=== PATIENT | male | born 1955 | race Caucasian/White ===

== ENCOUNTER 2017-10-22 07:30 | Inpatient (IN) ==
[2017-12-03 05:50] VITALS: BMI 41.8
[2017-12-03] MEDS ORDERED: TRANEXAMIC ACID 1,000 MG in NS 100 ML IV ONE ×2 (06:00→07:00)
[2017-12-03] MEDS ORDERED: DEXAMETHASONE 4 MG/ML INJECTION IVP ONE (06:00)
[2017-12-03] MEDS ORDERED: LIDOCAINE 1% (10mg/ml) 2mL INJ PF SDV ID ONE (06:00)
[2017-12-03] MEDS ORDERED: ACETAMINOPHEN 500 MG TABLET PO ONE (06:00)
[2017-12-03] MEDS ORDERED: FAMOTIDINE PB 20 MG/50 ML BAG IV ONE (06:00)
[2017-12-03] MEDS ORDERED: METOCLOPRAMIDE 10mg/2ml INJECTION IVP ONE (06:00)
[2017-12-03] MEDS ORDERED: ONDANSETRON 4 MG/2 ML INJECTION IVP ONE (06:00)
[2017-12-03] MEDS ORDERED: VANCOMYCIN 1,000 MG INJECTION ONE (06:35)
[2017-12-03] MEDS ORDERED: CEFAZOLIN 1 G INJECTION IVP ONE (06:47)
[2017-12-03] MEDS ORDERED: VANCOMYCIN 1,000 MG INJECTION IAR ONE (06:47)
[2017-12-03] MEDS: NOZIN NASAL SWAB NAS SCH ×6 (06:47→21:15)
[2017-12-03] MEDS ORDERED: FentaNYL 250 MCG/5 ML INJECTION ONE (07:01)
[2017-12-03] MEDS ORDERED: MIDAZOLAM 2mg/2ml INJECTION ONE (07:01)
[2017-12-03] MEDS ORDERED: PROPOFOL 500 MG/50 ML VIAL ONE (07:02)
[2017-12-03] MEDS ORDERED: TRANEXAMIC ACID 1,000 MG/10 ML VIAL TOP ONE (07:05)
[2017-12-03] MEDS ORDERED: SUCCINYLCHOLINE 20mg/mL 10mL INJECTION ONE (07:05)
[2017-12-03] MEDS ORDERED: NOZIN NASAL SWAB NAS ONE ×2 (07:21→09:49)
[2017-12-03] MEDS ORDERED: ONDANSETRON 4 MG/2 ML INJECTION IVP PRN ×2 (07:21→09:49)
[2017-12-03] MEDS ORDERED: DiphenhydrAMINE 25 MG CAPSULE PO PRN ×2 (07:21→09:49)
[2017-12-03] MEDS ORDERED: WARFARIN - PHARMACY CONSULT MC ONE (07:21)
[2017-12-03] MEDS ORDERED: DiphenhydrAMINE 50 MG/ML INJECTION IVP PRN ×2 (07:21→09:49)
[2017-12-03] MEDS ORDERED: LORazepam 1 MG TABLET PO PRN ×2 (07:21→09:49)
[2017-12-03] MEDS ORDERED: EPHEDRINE 50mg/ml INJECTION ONE (07:22)
[2017-12-03] MEDS ORDERED: LR 1,000 ML IV SCH (07:45)
[2017-12-03] MEDS ORDERED: EPINEPHrine PF 0.25 MG, BUPIVACAINE 0.25% PF 30 ML, KETOROLAC INJ 60 MG in NS 30 ML OPSITE ONE (08:00)
--- NOTE | 2017-12-03 08:10 | Anesthesia Preoperative Report ---
Anesthesia Preoperative Record - Date and Time Date: 12/03/17 Preoperative Diagnosis: Lt TKA M17.12 Proposed Procedure: left robot TKA NPO Since Date: 12/02/17 NPO Since Time: 23:00 Allergies/Adverse Reactions: Allergies Allergy/AdvReac Type Severity Reaction Status Date / Time meloxicam Allergy Mild COUGH Verified 12/03/17 06:14 ether Allergy Unknown NAUSEA & Verified 12/03/17 06:14 VOMITING - Vital Signs Vital Signs: Temperature 98.5 F 12/03/17 05:49 Pulse Rate 58 L 12/03/17 06:19 Respiratory Rate 15 12/03/17 05:49 Blood Pressure 128/75 12/03/17 05:49 Pulse Oximetry 94 12/03/17 05:49 Height and Weight: Height 5 ft 11 in Weight 136.1 kg Body Mass Index 41.8 - Medications Inpatient Medications: Current Medications Acetaminophen (Tylenol) 650 mg PO QID [facility] Aspirin (Ecotrin) 81 mg PO BID [facility] Bisacodyl (Dulcolax) 10 mg RECTALLY DAILY [facility] Stop: 12/05/17 20:01 Diphenhydramine HCl (Benadryl) 25 mg PO Q6H PRN PRN Reason: Itching Diphenhydramine HCl (Benadryl) 25 mg IVP Q6HR PRN PRN Reason: Itching Docusate Sodium (Colace) 100 mg PO BID [facility] Enoxaparin Sodium (Lovenox) 40 mg SQ Q24H [facility] Sodium Chloride (Normal Saline) 1,000 mls @ 50 mls/hr IV .Q20H [facility] Last Infusion: 12/03/17 07:49 Dose: 0 mls/hr Sodium Chloride (Normal Saline) 1,000 mls @ 80 mls/hr IV .[id number] [facility] Lactated Ringer's (Lactated Ringers) 1,000 mls @ 75 mls/hr IV .[id number] [facility] Last Admin: 12/03/17 07:49 Dose: 75 mls/hr Isopropyl Alcohol (Nozin Nasal Swab) 1 each NILAY Q1M [facility] Stop: 12/03/17 12:33 Last Admin: 12/03/17 06:54 Dose: 1 each Isopropyl Alcohol (Nozin Nasal Swab) 1 each NILAY 0600,1400,2200 [facility] Isopropyl Alcohol (Nozin Nasal Swab) 1 each NILAY POSTOP ONE Stop: 12/03/17 07:22 Lorazepam (Ativan) 1 mg PO HS PRN PRN Reason: Sleep Magnesium Hydroxide (Mom) 30 ml PO DAILY [facility] Stop: 12/05/17 08:01 Naproxen (Aleve (Naproxen) 220 Mg) 440 mg PO BID [facility] Ondansetron HCl (Zofran) 4 mg IVP Q4H PRN PRN Reason: Nausea &/or vomiting Polyethylene Glycol (Miralax) 17 gm PO DAILY [facility] Senna (Senna Lax) 17.2 mg PO HS [facility] Senna (Senna Lax) 17.2 mg PO DAILY PRN PRN Reason: Constipation Sodium Chloride (Iv Flush) 10 - 80 ml IV PRN PRN PRN Reason: Flushing Warfarin Sodium (Pharmacy Consult - Warfarin) 1 each [facility] O ONE Stop: 12/03/17 07:22 Warfarin Sodium (Coumadin Protocol) 0 [facility] NOTE [facility] Home Medications: Home Medications Medication Instructions Recorded Confirmed Type Aspirin [Aspirin] 81 mg PO DAILY 11/25/17 12/03/17 History Atorvastatin [Lipitor] 20 tab PO HS 11/25/17 12/03/17 History Cholecalciferol (Vitamin D3) 1 cap PO DAILY 11/25/17 12/03/17 History [Vitamin D3] Loratadine 10 mg PO DAILY PRN 11/25/17 12/03/17 History Metoprolol Tartrate [Lopressor] 25 mg PO BIDWM 11/25/17 12/03/17 History ergocalciferol (vitamin D2) 50,000 50,000 unit PO DAILY #2 cap 11/25/17 Rx unit capsule Is Patient on Beta Deana?: Yes - Medical History Respiratory: Reports: Pulmonary Embolism (2015- anticoagulation therapy for 6 months, no longer on it. ), Sleep Apnea, Other ("throat collapses when he lays on his back") Cardiovascular: Reports: Hypertension, High Cholesterol, Myocardial Infarction ( hx of - pt does not know when - over 3 years ago) Gastrointestional: Reports: Gastroesophageal Reflux Disease (history. denies currently), Hiatal Hernia (hx of), Ulcer Neuro/Musculoskeletal: Reports: HX.MS.OSAR, Back Problems Other History: Reports: Anesthesia Reactions (hx of difficult intubation-2005) - Surgical History HEENT Surgeries: Reports: Tonsillectomy Cardiac Surgeries/Treatments: Reports: Cardiac Catheterization (pt reports this was all clear. 2016) Respiratory Surgery/Treatments: Reports: CPAP Use GI Surgery/Treatments: Reports: Colonoscopy (adenomatous polyps) Surgery/Treatment: REPORT: Other (lower abd mass removed - benign) Musculoskeletal Surgery/Tx: Reports: Shoulder Arthroscopy (Lt shoulder repair; biceps tendon repaired), Total Hip Replacement (Lt THR; Rt THR) Reproductive Surgery/Treatment: Reports: Vasectomy Anesthesia Reactions: None Hx Family Anesthesia Reaction: No History of Motion Sickness: No - Social History Smoking Status: Former smoker Hx Chewing Tobacco Use: No Second Hand Exposure: No Substance Use Type: does not use Alcohol Intake: current Alcohol Intake Frequency: holidays/special occasions only - Pertinent Findings Laboratory: CBC and BMP 12/03/17 05:59 12/03/17 05:59 BMP 12/03/17 05:59 Sodium 144 Potassium 3.9 Chloride 105 Carbon Dioxide 27 BUN 23.0 H Creatinine 0.7 L Glucose 144 H Calcium 9.5 Liver Function 12/03/17 Range/Units 05:59 Total Bilirubin 0.50 (0.20-1.30) MG/DL AST 32 (17-59) U/L ALT 40 (1-50) U/L Alkaline Phosphatase 55 (38-126) U/L Albumin 4.7 (3.5-5.0) g/dL EKG: Sinus Bradycardia - Physical Exam Respiratory Exam: Present: lungs clear (slightly diminished), bilateral breath sounds equal Cardiovascular Exam: Present: regular rate and rhythm - Airway Assessment Mallampati Score: III TMD: 3 Fingerbreadths Neck Extension: good Overall Assessment: may be difficult mask vent (full perez), may be difficult intubation, other (history of difficult intubation. ) - ASA ASA Score: 3 - Plan Anesthesia: General Inhalation Gases - Discussion Discussion: Discussed risks/options/alternatives of anesthesia and questions answered. Patient consents. Nursing pain assessment noted. Present for Discussion: spouse Attestation Statement: Prior to the delivery of any anesthetic medication, I examined the patient, developed the plan, obtained the patient's consent and discussed the risk and benefits of the procedure with the patient/guardian. - Additional Information Seen by Anesthesia: Yes
--- NOTE | 2017-12-03 08:44 | Operative Note ---
- Procedure Preoperative Diagnosis: Left knee primary degenerative joint disease Postoperative Diagnosis: Same as preoperative diagnosis. Surgeon: René Meza MD Maintainer Plant: Jaun Simeon Complications: None. Anesthesia: Spinal. Estimated Blood Loss: See Anesthesia Record. Fluids: Please see Anesthesia Record. Desciption of Procedure: Mr. Lopez and his left knee were identified and marked in the preoperative holding area. He was brought back to the operating suite. Spinal anesthetic was administered and he was placed supine on the operating table. The left lower extremity was prepped and draped in my normal sterile fashion. Timeout was performed. The Progression robotic arm was used during the surgery. He had a correctable varus deformity with hyperextension of 5. A standard anterior midline incision followed by medial parapatellar arthrotomy was performed. Anterior fat pad and meniscus were removed. The patella was everted and a patellar osteotomy was performed leaving 14 mm of bone. A complete loss of cartilage in the medial compartment and large Helder articular osteophytes medially and around the patella. Tibial and femoral arrays and checkpoints were placed both within the original incision. The bone was then registered with the Progression robot. Osteophytes were removed and gaps were captured both 90 and 0 with correction. Given his hyperextension I balanced him with a 2 mm gaps in flexion and 16 mm gaps in extension. The Progression robotic arm was then used to assist with the bone cuts. Posterior osteophytes and remaining meniscus were removed. Trial components were placed. We used a 6 femur and a 5 tibia with a 9 mm spacer and a 32 patella. Motion was good but he was tight laterally in extension so after release of his IT band he was well balanced. A partial release of his PCL was also performed. He tracked well and was well balanced throughout range of motion. The tibia was stamped at the proper rotation. Trial components fit well and bone quality was adequate so we proceeded with press-fit components. Components were press-fit into place. A final spacer was also placed.The knee was ranged one more time to ensure good stability, balance and patellar tracking. 1 g of vancomycin powder was then placed into the knee joint. The capsulotomy was then closed with #1 Vicryl. I then left my trust manager assistant to close the subcutaneous tissue with 2-0 Vicryl. Running 4-0 Monocryl will be used in the subcuticular layer. Dermabond will be used on the skin followed by sterile dressing. After drapes are removed patient will be taken to recovery room under the care of anesthesia.
--- NOTE | 2017-12-03 09:29 | Anesthesia Postoperative Note ---
- Date and Time Date: 12/03/17 Time: 09:29 - Status Patient Participated in Evaluation: Patient Participated in Person Vital Signs: Temperature 98.5 F 12/03/17 05:49 Pulse Rate 58 L 12/03/17 06:19 Respiratory Rate 15 12/03/17 05:49 Blood Pressure 128/75 12/03/17 05:49 Pulse Oximetry 94 12/03/17 05:49 Respiratory Function: Airway Patent Cardiovascular Function: Regular Pulse EKG: Sinus Rhythm Mental Status: Alert and Oriented Pain Intensity: 2 Hydration: IV Infusing Complications During Recover: None Apparent - Follow-Up Instructions Instructions: Per Surgeon
--- NOTE | 2017-12-03 09:29 | Anesthesia Procedure Note ---
Peripheral Nerve Blockade - Procedure Physician: Nav Meza MD Date: 12/03/17 Surgical Procedure: left TKA, robot Discussion: Discussed risks/options/alternatives of anesthesia and questions answered. Patient consents. Nursing pain assessment noted. Block Start: 09:19 Block Stop: 09:23 Blocked Employed: Adductor Canal Indication: Post-Operative Pain Approach: Left Side Confirmed Position: Supine Patient: Consent, Risks/Benefits Discussed, Informed, Post Block Act. Discussed IV Sedation: Yes Initial Vital Signs: Temperature 98.5 F 12/03/17 05:49 Temperature Source Oral 12/03/17 05:49 Pulse Rate 59 L 12/03/17 05:49 Respiratory Rate 15 12/03/17 05:49 Blood Pressure 128/75 12/03/17 05:49 Blood Pressure Mean 92 12/03/17 05:49 Blood Pressure Position Sitting 12/03/17 05:49 Pulse Oximetry 94 12/03/17 05:49 Oxygen Delivery Method 12/03/17 05:49 Post Vital Signs: Temperature 98.5 F 12/03/17 05:49 Pulse Rate 58 L 12/03/17 06:19 Respiratory Rate 15 12/03/17 05:49 Blood Pressure 128/75 12/03/17 05:49 Pulse Oximetry 94 12/03/17 05:49 Initial Pain Pain Score: 0 Post Block Pain Score: 0 Prep: Chlorhexadine/ETOH Ultrasound Used?: Yes - Injectate Ropivacaine (%): 0.5 Ropivacaine (mL): 30 Was Epi 1:200,000 Used?: No Injection: Injection made incrementally with constant monitoring and aspiration every ml
[2017-12-03] MEDS ORDERED: POLYETHYL GLYCOL 3350 17gm PACKET PO SCH (09:49)
[2017-12-03] MEDS ORDERED: DOCUSATE SODIUM 100 MG CAPSULE PO SCH (09:49)
[2017-12-03] MEDS ORDERED: NS 1,000 ML IV SCH ×2 (09:49→14:15)
[2017-12-03] MEDS ORDERED: ACETAMINOPHEN 325 MG TABLET PO SCH (09:49)
[2017-12-03] MEDS ORDERED: NAPROXEN 220 MG TABLET PO SCH (09:49)
[2017-12-03] MEDS ORDERED: LORATADINE 10 MG TABLET PO PRN (09:49)
--- NOTE | 2017-12-03 10:11 | XRay Report ---
Indication: postoperative image PROCEDURE: XR knee LT 2V: Encounter: Initial Comparison: August 12, 2017 Findings: Postoperative changes of left total knee replacement are seen. There is expected postoperative subcutaneous gas. No evidence of hardware failure or acute fracture. No retained radiopaque surgical instruments or sponges. Overlying material causing artifact. Impression: New left total knee prosthesis without evidence of immediate complication. .
[2017-12-03] MEDS: NS 1,000 ML IV SCH ×3 (10:13→23:20)
[2017-12-03] MEDS: ACETAMINOPHEN 325 MG TABLET PO SCH ×4 (10:14→20:07)
[2017-12-03] MEDS: NAPROXEN 220 MG TABLET PO SCH ×2 (10:15→20:06)
[2017-12-03] MEDS: POLYETHYL GLYCOL 3350 17gm PACKET PO SCH (10:15)
[2017-12-03] MEDS: DOCUSATE SODIUM 100 MG CAPSULE PO SCH ×2 (10:15→20:07)
[2017-12-03] MEDS: Oxycodone *IR* 5 MG TABLET PO PRN ×2 (11:04→15:30)
[2017-12-03] MEDS ORDERED: SALINE FLUSH 10ml SYRINGE IV PRN (12:16)
[2017-12-03] MEDS ORDERED: WARFARIN 6 MG TABLET PO ONE (13:14)
--- NOTE | 2017-12-03 13:17 | Pharmacy Consult ---
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 Will give Warfarin 6mg today. Thank you.
[2017-12-03] MEDS ORDERED: NOZIN NASAL SWAB NAS SCH (14:00)
[2017-12-03] MEDS: CEFAZOLIN 3 G in NS 100 ML IV SCH ×2 (15:21→23:20)
[2017-12-03] MEDS: ASPIRIN *EC* 81 MG TABLET PO SCH (20:07)
[2017-12-03] MEDS ORDERED: ENOXAPARIN 40 MG/0.4 ML INJECTION SQ SCH (21:00)
[2017-12-03] MEDS ORDERED: ATORVASTATIN 40 MG TABLET PO SCH (21:00)
[2017-12-03] MEDS ORDERED: SENNOSIDES 8.6 MG TABLET PO SCH ×2 (21:00)
[2017-12-04] MEDS: NOZIN NASAL SWAB NAS SCH ×2 (05:48→13:32)
[2017-12-04] MEDS ORDERED: SENNOSIDES 8.6 MG TABLET PO PRN ×2 (07:10→07:21)
--- NOTE | 2017-12-04 07:36 | Pharmacy Consult ---
Pharmacy Consult-Warfarin - Laboratory Information 12/04/17 03:54 INR 1.15 - Consult Information We will increase the warfarin dose for this patient to 7.5mg p.o. today at noon. Target INR of 1.5 - 2.5. Thank you,
[2017-12-04] MEDS: NAPROXEN 220 MG TABLET PO SCH (08:17)
[2017-12-04] MEDS: ASPIRIN *EC* 81 MG TABLET PO SCH (08:17)
[2017-12-04] MEDS: DOCUSATE SODIUM 100 MG CAPSULE PO SCH (08:17)
[2017-12-04] MEDS: POLYETHYL GLYCOL 3350 17gm PACKET PO SCH (08:18)
[2017-12-04] MEDS: ACETAMINOPHEN 325 MG TABLET PO SCH ×2 (08:18→13:32)
--- NOTE | 2017-12-04 08:41 | Orthopedic Progress Note ---
Date: Date: 12/04/17 Time: 825 Subjective/Severity of Illness: Doing well. Pain is controlled. He has been mobile with good tolerance. No CP, cough or SOA. He is off oxygen. hgb 12.8, BMP is normal, INR 1.15 , Glucose 144-215 Orthopedic Exam Vital signs: Temperature 97.5 F 12/04/17 07:00 Pulse Rate 60 12/04/17 07:00 Respiratory Rate 12 12/04/17 07:00 Blood Pressure 123/62 12/04/17 07:00 Pulse Oximetry 93 12/04/17 07:00 - Constitutional General Appearance: Present: alert, cooperative, no acute distress - Respiratory Exam Present: non-labored - Cardiovascular Exam Present: pedal pulses intact - Extremities Exam Present: pulses intact. Absent: calf tenderness Comments: Mepilex dressing intact. Small drop of bloody drainage at top of the dressing. - Integumentary Exam Present: pink, warm, dry - Neurological Exam Present: intact to light touch, no deficits - Psychiatric Exam Present: alert, normal affect - Labs Result Diagrams: 12/04/17 03:54 12/04/17 03:54 Abnormal lab results 12/04/17 12/04/17 Range/Units 03:54 03:54 Hgb 12.8 L D (13.5-17.5) GM/DL Hct 39.0 L D (41-53) % Creatinine 0.6 L (0.8-1.5) mg/dL BUN/Creatinine Ratio 33 H (6-26) RATIO Glucose 215 H (75-110) MG/DL Calculated Osmolality 282 H (261-280) MOSM/KG H & H 12/03/17 12/04/17 Range/Units 05:59 03:54 Hgb 15.2 12.8 L D (13.5-17.5) GM/DL Hct 45.5 39.0 L D (41-53) % Coagulation 12/04/17 Range/Units 03:54 INR 1.15 (0.99-1.21) Orthopedic Assessment and Plan - Anticoagulation Therapy Anticoagulation: Coumadin therapy with Lovenox bridge x30 days Hospital Course Summary Disclaimer: The visit summary below is not to be considered part of the above Progress Note.
[2017-12-04] MEDS: Oxycodone *IR* 5 MG TABLET PO PRN (11:10)
[2017-12-04] MEDS: NS 1,000 ML IV SCH (11:27)
--- NOTE | 2017-12-04 11:48 | Discharge Summary ---
Orthopedic Discharge Info Date of admission: 12/03/17 05:27 Anticipated date of discharge: 12/04/17 Primary care physician: Chase Aranda MD Attending Physician: Nav Meza MD Consults: 12/03/17 05:43 Consult to Anesthesiology [CONS] Routine Reason For Exam: Preoperative Assessment 12/03/17 07:21 Case Management Consult [CONS] Routine Reason For Exam: Discharge Planning DME-Walker [CONS] Routine Height: 5 ft 11 in Weight: 136.1 kg Total Joint Outpatient Therapy [CONS] Routine Comment: Remove dressing in 2 weeks 12/03/17 09:49 Case Management Consult [CONS] Routine Reason For Exam: Discharge Planning DME-Walker [CONS] Routine Height: 5 ft 11 in Weight: 136.1 kg Total Joint Outpatient Therapy [CONS] Routine Comment: Remove dressing in 2 weeks - Laboratory Result Diagrams: 12/04/17 03:54 12/04/17 03:54 Laboratory: Abnormal lab results 12/04/17 12/04/17 Range/Units 03:54 03:54 Hgb 12.8 L D (13.5-17.5) GM/DL Hct 39.0 L D (41-53) % Creatinine 0.6 L (0.8-1.5) mg/dL BUN/Creatinine Ratio 33 H (6-26) RATIO Glucose 215 H (75-110) MG/DL Calculated Osmolality 282 H (261-280) MOSM/KG H & H 12/03/17 12/04/17 Range/Units 05:59 03:54 Hgb 15.2 12.8 L D (13.5-17.5) GM/DL Hct 45.5 39.0 L D (41-53) % Coagulation 12/04/17 Range/Units 03:54 INR 1.15 (0.99-1.21) Orthopedic Discharge HPI - HPI Comments This patient was admitted for elective surgical tx of end stage degenerative joint disease that failed to respond to conservative treatment. Further details of this is found in the admission H&P. Orthopedic Hospital Course Hospital course: 12/04/17 11:46 After appropriate preoperative clearance and signing of operative consent, the patient was given IV antibiotics, according to orthopedic protocol. The patient was taken to the operating room and underwent elective left total knee joint arthroplasty. Following surgery, antibiotics were discontinued less than 24 hours according to joint protocol. Appropriate anticoagulants were initiated with Lovenox with bridge to Coumadin [id number] due to history of PEs, and SCDs added for DVT prevention. The dressing was clean, dry, and intact. Pain control was obtained via multimodal approach. Bowel motivation addressed with scheduled and PRN medications. Early mobilization was initiated through PT services. Discharge arrangements made by a collaborative effort between the patient and Case Management. Follow-up is scheduled in 2-3 weeks. Discharge instructions given by orthopedic providers and nursing staff at discharge. Discharge condition was good. Care extended to > 2 midnight stays?: No Discharge Plan - Med Rec/Dispo Referrals/Follow Up: Nav Meza MD [Physician] - 12/28/17 10:45 am Additional Instructions: [facility] ON 12/07/2017 AT 9:45AM FOR PHYSICAL THERAPY EVAL. PLEASE COMPLETE THE PAPERWORK IN [place] [facility] PRIOR TO THE APPOINTMENT. PHONE [phone] ENVIRONMENTAL OFFICER LOVENOX INJECTIONS AT [facility]. THEY WILL COST $11.99. GIVE YOURSELF ONE LOVENOX INJECTION EACH DAY BEGINNING DECEMBER 05. COME TO LAB AT [facility] EVERY THURSDAY AND THURSDAY FOR 4 WEEKS WHILE YOU ARE TAKING COUMADIN. BEGIN COMING TO LAB ON DECEMBER 07. Prescriptions: New Acetaminophen [Tylenol] 650 mg PO QID tab Aspirin *EC* [Ecotrin] 81 mg PO BID tab Docusate Sodium [Colace] 100 mg PO BID cap Enoxaparin Sodium [Lovenox] 40 mg SQ Q24H syringe Milk of Magnesia [Mom] 30 ml PO DAILY udc Naproxen [Aleve (Naproxen) 220 mg] 440 mg PO BID tab Oxycodone *IR* [Roxicodone *Ir*] 5 - 15 mg PO Q3H PRN #60 tab PRN Reason: Breakthrough Pain PEG 3350 17gm PACKET [Miralax] 17 gm PO DAILY packet Warfarin [Coumadin] 7.5 mg PO 1700 #2 tab Continue Atorvastatin [Lipitor] 20 mg PO HS Loratadine 10 mg PO DAILY PRN PRN Reason: Allergy Symptoms Metoprolol Tartrate [Lopressor] 25 mg PO BIDWM No Action Aspirin [Aspirin] 81 mg PO DAILY Cholecalciferol (Vitamin D3) [Vitamin D3] 1 cap PO DAILY ergocalciferol (vitamin D2) 50,000 unit capsule 50,000 unit PO DAILY #2 cap - Disposition 01 Discharged Home, Self-Care - Dismissal Complete Discharge Instructions are:: Complete
[2017-12-04] MEDS ORDERED: WARFARIN 7.5 MG TABLET PO SCH (12:00)
[2017-12-04 13:44] VITALS: BP 137/67; PULSE 59; RESP 18; TEMP 97.7; O2SAT 94
[2017-12-05] MEDS ORDERED: BISACODYL 10 MG SUPPOSITORY RECTALLY SCH ×2 (20:00)
== END 2017-12-04 14:52 | disposition home or self-care (01) | DRG 470 ==
LOC: EDSTATUS 07:30 → NMC.PERIOP 12-03 05:27 → SRG 12-03 10:05
PROVIDERS: ADMIT Orthopaedic Surgery; ATTEND Orthopaedic Surgery